=== PATIENT | male | born 1970 | race Two or more races ===

== ENCOUNTER 2025-03-14 19:32 | Emergency (ER) | payer MEDICAID, SELFPAY ==
[2025-03-14 19:35] VITALS: BMI 31.0
[2025-03-14 19:53] VITALS: BP 178/99; PULSE 95; RESP 17; TEMP 36.9; O2SAT 98
--- NOTE | 2025-03-14 20:00 | XR_ITS ---
Examination: CT soft tissue neck, with intravenous contrast. 2-D coronal reconstructions. 2-D sagittal reconstructions. Date and time of exam :March 14, 2025, 11:32 PM Indications neck pain and swelling difficulty swallowing 6 months CTDI: vol (mGy):14.7 DLP: (mGycm):300 Technique: 1.25 mm axial sections of the neck of the obtained. Coronal and sagittal reconstructions have been obtained. Intravenous contrast administered 50 cc Isovue-370. Low dose protocols were performed. One or more of the following dose reduction techniques were used; automated exposure control, adjustment of the mA and/or KV according to patient size, use of iterative reconstruction technique. Findings: Symmetrical optic globes Soft tissue left tonsillar mass, axial image 25 measuring 23 x 18 x 28 mm, impinging upon the oropharyngeal airway Bilateral carotid triangle lymph nodes, greater on the left side, measuring up to 22 mm Symmetrical submandibular glands The larynx appears normal No thyroid masses Epiglottis appears mildly thickened There also is prevertebral soft tissue prominence, sagittal image 30, measuring 17 mm in AP dimension Moderate degenerative disc disease C5-C6 Impression: Soft tissue left tonsillar mass 23 x 18 x 28 mm Prevertebral possible soft tissue mass, 17 mm in AP dimension Bilateral carotid triangle lymphadenopathy Differential would include left tonsillar carcinoma with metastatic lymphadenopathy, recommend PET CT scan, MRI soft tissue neck follow-up pre and postcontrast
[2025-03-14 20:35] LABS: Strep A Rapid Negative (Negative)
[2025-03-14 20:36] LABS: Basophils # (Auto) 0.0 Thou/mm3 (0.0-0.2); Basophils % (Auto) 0 % (0-2.5); Eosinophils # (Auto) 0.1 Thou/mm3 (0.0-0.5); Eosinophils % (Auto) 1 % (0-10); Hematocrit 44.5 % (41.0-53.0); Hemoglobin 15.0 g/dL (13.5-16.0); Immature Granulocytes Auto 0.02 Thou/mm3 (0.00-0.00); Lymphocytes # (Auto) 2.7 Thou/mm3 (1.0-4.8); Lymphocytes % (Auto) 36 % (10-50); Mean Corpuscular HGB Conc 33.7 g/dl (31.0-37.0); Mean Corpuscular Hemoglobin 30.3 pg (25.0-35.0); Mean Corpuscular Volume 90 fL (80-100); Monocytes # (Auto) 0.7 Thou/mm3 (0.0-0.8); Monocytes % (Auto) 9 % (0-12); Neutrophils # (Auto) 4.1 Thou/mm3 (1.8-7.7); Neutrophils % (Auto) 54 % (37-80); Nucleated Red Blood Cell # 0.00 Thou/mm3 (0.00-0.00); Nucleated Red Blood Cell % 0 /100 WBC (0); Platelet Count 198 Thou/mm3 (140-440); RDW Standard Deviation 42.5 fL (35.1-43.9); Red Blood Count 4.95 Miln/mm3 (4.50-5.90); White Blood Count 7.6 Thou/mm3 (3.8-10.6)
[2025-03-14 20:56] LABS: Alanine Aminotransferase 24 U/L (10-49); Albumin, Serum 4.5 gm/dL (3.5-5.0); Albumin/Globulin Ratio 1.7 (1.2-2.2); Alkaline Phosphatase 71 U/L (46-116); Anion Gap 5 (7-16); Aspartate Amino Transferase 30 U/L (0-34); BUN/Creatinine Ratio 9 Ratio (12-20); Bilirubin,Total 0.5 mg/dL (0.3-1.2); Blood Urea Nitrogen 8 mg/dL (9-23); Calcium 10.0 mg/dL (8.3-10.6); Calcium (Corrected) 10.0 mg/dL (8.5-10.1); Carbon Dioxide 28.6 mMol/L (20.0-31.0); Chloride 108 mMol/L (98-107); Creatinine (Component) 0.9 mg/dL (0.6-1.3); Estimated Creatinine Clearance 104.4 mL/min (>60); Globulin 2.6 gm/dL (2.3-3.5); Glucose 106 mg/dL (74-106); Osmolality,Calculated 281 (275-295); Potassium 4.1 mMol/L (3.4-5.1); Sodium 142 mMol/L (136-145); Total Protein 7.1 gm/dL (5.7-8.2); eGFR > 60 See Note
[2025-03-14 22:00] LABS: Mono Screen Negative (Negative)
[2025-03-15] MEDS: DEXAMETHASONE SOD PHOS INJ 10 MG/ML VIAL IM (00:17)
--- NOTE | 2025-03-15 00:19 | PD.EDDENTL ---
ED Dental RME/HPI General Chief complaint: Dental/Oral/Throat Stated complaint: SORE THROAT Time Seen by Provider: 03/14/25 19:34 Arrival date/time: 03/14/25 19:32 This is a case of 54-year-old male with no medical history came in in the emergency room due to on and off sore throat for several months worsening of the symptoms now the patient noted a mass on his left side of the throat and neck thus decided to sought consult here in the emergency room patient presents with full sentences no drooling of saliva no hoarseness of voice Limitations: no limitations Related Data Home Medications ?Medication ?Instructions ?Recorded ?Confirmed Amitriptyline Hcl 1 tab PO BID ##0 09/03/13 abacavir 300 mg tablet (Ziagen) 1 tab PO BID ##0 09/03/13 atazanavir 300 mg capsule (Reyataz) 300 mg PO QDAY #0 caps 09/03/13 escitalopram oxalate 10 mg tablet 10 mg PO QDAY #0 tabs 09/03/13 (Lexapro) gabapentin 600 mg tablet,extended 2 tab PO TID ##0 09/03/13 release 24 hr (Gralise) loratadine 10 mg tablet 10 mg PO QDAY ##0 09/03/13 ritonavir 100 mg tablet (Norvir) 1 tab PO QDAY ##0 09/03/13 tenofovir disoproxil fumarate 150 300 mg PO QDAC ##0 14 mg tablet (Viread) Previous Rx's ?Medication ?Instructions ?Recorded lidocaine HCl 2 % mucosal solution 10 ml PO Q4HR PRN sore throat #100 03/15/25 (Lidocaine Viscous) mL methylprednisolone 4 mg tablets in 4 mg PO QDAY #21 tabs 03/15/25 a dose pack (Medrol (James)) Allergies Allergy/AdvReac Type Severity Reaction Status Date / Time No Known Allergies Allergy Verified 03/14/25 19:33 Review of Systems Review of Systems Systems Reviewed: All systems reviewed, normal except as documented Constitutional Constitutional: Reports system reviewed and no additional complaints, except as documented, Reports as per HPI and Denies headache(s) ENT Ears, Nose, Mouth, and Throat: Reports system reviewed and no additional complaints, except as documented, Reports as per HPI, Denies abnormal hearing, Denies bleeding gums, Denies change in voice, Denies dental pain, Denies disequilibrium, Denies dizziness, Denies dry mouth, Denies dysphagia, Denies ear discharge, Denies otalgia, Denies epistaxis, Denies facial pain, Denies halitosis, Denies headache(s), Denies hearing loss, Denies hoarseness, Denies lip swelling, Denies mouth lesions, Denies mouth pain, Denies nasal congestion, Denies nasal discharge, Denies nasal obstruction, Denies nasal trauma, Reports neck mass, Denies neck pain, Denies nose pain, Denies odynophagia, Denies post nasal drip, Denies sinus pain, Denies sinus pressure, Reports sore throat, Reports throat swelling, Denies tinnitus, Denies tongue swelling and Denies vertigo Cardiovascular Cardiovascular: Reports system reviewed and no additional complaints, except as documented and Reports as per HPI Respiratory Respiratory: Reports system reviewed and no additional complaints, except as documented and Reports as per HPI Gastrointestinal Gastrointestinal: Reports system reviewed and no additional complaints, except as documented, Reports as per HPI, Denies dysphagia and Denies odynophagia Genitourinary Genitourinary: Reports system reviewed and no additional complaints, except as documented and Reports as per HPI Musculoskeletal Musculoskeletal: Reports system reviewed and no additional complaints, except as documented, Reports as per HPI and Denies neck pain Neurologic Neurologic: Reports system reviewed and no additional complaints, except as documented, Reports as per HPI, Denies abnormal hearing, Denies disequilibrium, Denies dizziness, Denies headache(s) and Denies vertigo Allergic/Immunologic Allergic/Immunologic: Denies lip swelling, Reports throat swelling and Denies tongue swelling Past Medical History Past Medical History CARDIAC: Positive Cardiac Disorders RESPIRATORY: Positive Asthma GENITOURINARY: Negative Renal Disease ENDOCRINE: Negative Diabetes Mellitus Type 2 HEMATOLOGIC: Negative Sickle Cell Disease Social History SMOKING STATUS: Never smoker ED Exam General Limitations: Present no limitations General appearance: Present alert, in no apparent distress and other (Patient is awake alert oriented not in distress nontoxic looking well-hydrated well-nourished) Head Head exam: Present atraumatic, normocephalic and normal inspection Eye Eye exam: Present normal appearance, PERRL and EOMI ENT ENT exam: Present normal exam, normal oropharynx, mucous membranes moist and other (Nose and ear were normal noted left tonsils red swollen but no exudate no peritonsillar abscess no [place] no muffled voice no hot potato voice no drooling of saliva patient is able to swallow with no difficulty) Neck Neck exam: Present normal inspection, full ROM, trachea midline, lymphadenopathy and other (Noted a 2 cm mass on the left anterior neck movable nontender no abscess no cellulitis); Absent tenderness, meningismus or thyromegaly Chest Chest inspection: Present normal inspection and symmetric chest wall rise; Absent tenderness Respiratory Respiratory exam: Present normal lung sounds bilaterally; Absent respiratory distress, wheezes, stridor, accessory muscle use or prolonged expiratory phase Cardiovascular Cardiovascular exam: Present regular rate, normal rhythm and normal heart sounds; Absent bradycardia, tachycardia, irregular rhythm or diastolic murmur Abdominal Exam Abdominal exam: Present soft and normal bowel sounds Extremities Exam Extremities exam: Present normal inspection and full ROM Back Exam Back exam: Present normal inspection and full ROM Neurological Exam Neurological exam: Present alert, oriented X3, CN II-XII intact, normal gait and reflexes normal; Absent motor sensory deficit Psychiatric Psychiatric exam: Present normal affect and normal mood Skin Skin exam: Present warm, dry, intact and normal color Course Quality Measures none Orders Category Date Time Status CT Screening NOW Care 03/14/25 20:00 Active IV [Insert IV] NOW Care 03/14/25 21:[address] soft tissue neck w con Stat Exams 03/14/25 20:00 Completed CBC Stat Lab 03/14/25 20:12 Completed CMP [Comprehensive Metabolic Panel] Stat Lab 03/14/25 20:12 Completed [place] Screen Stat Lab 03/14/25 20:12 Completed Strep A Rapid Stat Lab 03/14/25 20:11 Completed Dexamethasone Inj [Decadron Inj] Med 03/15/25 00:09 Discontinued 10 mg IM X1 ONE Vital Signs Vital signs: Vital Signs Temperature 98.4 F 03/14/25 19:53 Pulse Rate 95 03/14/25 19:53 Respiratory Rate 17 03/14/25 19:53 Blood Pressure 178/99 H 03/14/25 19:53 Pulse Oximetry (%) 98 03/14/25 19:53 Oxygen Delivery Method Room Air 03/14/25 19:53 Oxygen saturation 98% on room air normal Dental / Oral MDM Narrative MDM Narrative:: This is a case of 54-year-old male with no medical history came in in the emergency room due to on and off sore throat for several months worsening of the symptoms now the patient noted a mass on his left side of the throat and neck thus decided to sought consult here in the emergency room patient presents with full sentences no drooling of saliva no hoarseness of voice physical examination patient is awake alert oriented not in distress nontoxic looking well-hydrated well-nourished vital signs stable BP stable not tachycardic not tachypneic not hypoxic and afebrile lung sounds clear no crackles no rales no retraction no stridor heart normal rate regular rhythm no murmur ear and nose were normal noted left tonsils swollen red but no exudate no drooling of saliva no peritonsillar abscess patient can speak full sentences no hoarseness of voice no muffled voice no hot potato voice patient noted to have approximately 2 cm mass on the left anterior neck movable nontender no abscess no cellulitis the rest of the physical examination and neurological exam is normal and unremarkable blood test showed no leukocytosis no anemia kidney and liver function is normal no electrolyte imbalance patient more normal no glucoses were negative rapid strep is also negative patient CT scan of the neck with contrast showed a left tonsillar mass with soft tissue mass on the neck and lymphadenopathy on the carotid triangle of the neck cannot totally ruled out malignancy I discussed the condition and the result of the imaging to Dr. Mccoy at this point there is no indication to admit or transfer the patient since the patient has no drooling of saliva and there is no obstruction on the throat patient needs to see an ENT specialist for further evaluation and treatment for possible biopsy or PET scan to rule out malignancy patient will be discharged home patient was given dexamethasone per Dr. Mccoy order and discharge with Medrol pack I have a long discussion with the patient and with the sister the importance to see the ENT specialist to [place] ruled out malignancy they understand very well the result of the imaging and the importance to see the ENT specialist for any worsening symptoms or any emergent concern that they are informed to return in the emergency room immediately or call 911 Patient was discharged with comfortable condition walking with stable gait. Patient verbalized no further complains explained diagnosis and answered patient question. Patient is comfortable with the proposed management plan including the need to follow up with his/her primary care physician and any specialist if applicable Discussed patient for any urgent condition or worsening sx, He/She needed to go to emergency room immediately or call 911. Patient acknowledge the responsibility to follow up as instructed and to monitor her/his symptoms. For any persistence of the symptoms for more than 3-5 days return precaution advised. Discussed the result of the test and was given printed discharge instruction Patient data External records reviewed:: [facility] previous records Clinical information provided by:: patient and family Social determinants that could affect healthcare access:: none Patient has the following chronic illnesses:: None How is presenting disease/condition affected by chronic disease/condition?: no chronic disease Evaluation data The following diagnostics were reviewed and interpreted by me:: lab results and radiology exam(s) Lab and/or radiology exams considered but not ordered:: Reviewed Interpretation Summary: Reviewed Medications / Prescriptions Medications or Prescriptions considered but not ordered:: Given Medication administrations:: Medication Administration History Discontinued Medications Dexamethasone Sodium Phosphate (Dexamethasone Sod Phos Inj 10 Mg/Ml Vial) 10 mg IM X1 ONE Stop: 03/15/25 00:10 Last Admin: 03/15/25 00:17 Dose: 10 mg Documented By: OA Given Consultations Consultation(s) initiated? (list below): No Diagnosis Dental Differential Diagnosis: other (Left tonsillar mass lymphadenopathy neck mass) Most likely diagnosis given after review of the tests above:: Left tonsillar mass lymphadenopathy neck mass Admission Indicated Admission indicated?: not indicated Explain why admission is indicated or not indicated:: Not indicated Admission Request Was there a request for admission?: No Admission Attestation Admission request attestation: Not indicated Disposition Plan Disposition Plan: Discharge Discharge Attestation Discharge Attestation: The patient and all family members were given an opportunity to ask questions and understood the discharge instructions. Discharge instructions specifically effects, indications for sooner follow up or return to the emergency department, and the expected course of current diagnosis. Patient condition: Stable Discharge Plan Plan Patient Disposition: HOME (Self Care) Patient condition on transfer: Stable Prescriptions/Referrals Prescriptions/Med Rec: New methylprednisolone [Medrol (James)] 4 mg tablets,dose pack 4 mg PO QDAY Qty: 21 0RF lidocaine HCl [Lidocaine Viscous] 2 % solution 10 ml PO Q4HR PRN (Reason: sore throat) Qty: 100 0RF No Action Amitriptyline Hcl 50 MG tablet 1 tab PO BID Qty: 0 loratadine 10 MG tablet 10 mg PO QDAY Qty: 0 abacavir [Ziagen] 300 MG tablet 1 tab PO BID Qty: 0 escitalopram oxalate [Lexapro] 10 MG tablet 10 mg PO QDAY Qty: 0 atazanavir [Reyataz] 300 MG capsule 300 mg PO QDAY Qty: 0 ritonavir [Norvir] 100 MG tablet 1 tab PO QDAY Qty: 0 gabapentin [Gralise] 600 MG tablet extended release 24 hr 2 tab PO TID Qty: 0 tenofovir disoproxil fumarate [Viread] 150 MG tablet 300 mg PO QDAC Qty: 0 Referrals: Erik Penaloza PA-C [Primary Care Provider] - In 1 week Kailash Roa DO [Physician, Ear, Nose, Throat] - 03/15/25 Referral Note: For further evaluation and treatment of left tonsillar mass neck mass lymphadenopathy to ruled out malignancy Problem List Clinical Impression: Tonsillar mass, Lymphadenopathy, Mass in neck Patient/Caregiver Discharge Instructions Education Materials: Mouth and Throat Tumors, Lymphadenopathy Additional Instructions: It is very important to see an ENT specialist in 2 days for reevaluation of your left tonsillar mass neck mass and lymphadenopathy to rule out cancer for further evaluation and treatment for possible biopsy and PET scan follow-up with your primary care physician in 2 days for reevaluation and to be referred to ENT specialist for further evaluation and treatment of left tonsillar mass to rule out malignancy worsening symptoms or any emergent concerns such as unable to swallow drooling of saliva hoarseness of voice throat pain unable to eat etc. return to the emergency room immediately or call 911 take your medication as directed keep hydrated Print Language: Kazakh Stand Alone Forms: [employer] Award Info., Patient Portal Info Letter [place]/MELVIN Supervising Physician [place]RA[place]ELVIN Supervising Physician: Dr. mccoy
[2025-03-15 00:21] VITALS: BP 128/72; PULSE 78
== END 2025-03-15 00:21 | disposition home or self-care (01) ==
PROVIDERS: Nurse Practitioner Family; Emergency Provider Emergency Medicine; PCP Physician Assistant
DX: J35.8 Other chronic diseases of tonsils and adenoids (principal)
CPT/HCPCS: 36415; 70491; 80053; 85025; 86308; 87651; 96372; 99283; A4649; J1100; Q9967